=== PATIENT | female | born 1965 | race Caucasian/White ===

== ENCOUNTER 2016-05-23 16:26 | Observation (INO) | payer MEDICAID ==
[~2016-05-23] VITALS: Ht 160 cm; Wt 93.4 kg
[2016-05-23] MEDS ORDERED: ASPIRIN 81 MG CHEW TAB ONE (16:53)
[2016-05-23] MEDS ORDERED: NITROGLYCERIN SL 0.4 MG TAB SL ONE (17:18)
[2016-05-23] MEDS ORDERED: NEB-ALBUTEROL 2.5 MG/3 ML INH PRN (20:40)
[2016-05-23] MEDS ORDERED: PRAVASTATIN 40 MG TAB PO SCH (21:00)
[2016-05-23] MEDS ORDERED: EZETIMIBE 10 MG TAB PO SCH (21:00)
[2016-05-23 22:30] VITALS: BP_SYST 138; BP_SYST 144; RESP 18; TEMP 97.7; Ht 160 cm; Wt 93.4 kg
[2016-05-23] MEDS ORDERED: NITROGLYCERIN 50 MG/250 ML IV PRN (22:40)
[2016-05-23] MEDS ORDERED: TEMAZEPAM 15 MG CAP PO PRN (22:40)
[2016-05-23] MEDS ORDERED: MORPHINE 2 MG/ML SYR IV PRN (22:40)
[2016-05-23] MEDS ORDERED: NITROGLYCERIN SL 0.4 MG TAB SL PRN (22:40)
[2016-05-23] MEDS ORDERED: SALINE FLUSH 10 ML FLUSH PRN (22:40)
[2016-05-23] MEDS ORDERED: TRAMADOL 50 MG TAB PO PRN (22:40)
[2016-05-23] MEDS ORDERED: ONDANSETRON 4 MG VIAL IV PRN (22:40)
[2016-05-23] MEDS ORDERED: ASPIRIN 81 MG CHEW TAB PO ONE (22:40)
[2016-05-23] MEDS ORDERED: DOCUSATE SOD 100 MG CAP PO PRN (22:40)
[2016-05-23] MEDS ORDERED: SODIUM CHLORIDE 0.9% 1,000 ML IV SCH (22:40)
[2016-05-23] MEDS ORDERED: SODIUM CHLORIDE 0.9% FLUSH BAG 500 ML IV PRN (22:40)
[2016-05-23] MEDS ORDERED: LORAZEPAM 0.5 MG TAB PO PRN (22:40)
[2016-05-23] MEDS ORDERED: ACETAMINOPHEN 325 MG TAB PO PRN (22:40)
[2016-05-24] VITALS (7 sets, daily range): BP systolic 111–142; RESP 16–18; TEMP 97.5–98.1
[2016-05-24] MEDS ORDERED: ASPIRIN EC 81 MG TAB PO SCH (08:00)
[2016-05-24] MEDS ORDERED: SALINE FLUSH 10 ML FLUSH SCH ×2 (08:00→20:00)
[2016-05-24] MEDS ORDERED: NITROGLYCERIN 0.2 MG/HR PATCH TRANSDERM SCH (09:40)
[2016-05-24] MEDS ORDERED: METOPROLOL XL 25 MG TAB PO SCH (09:40)
[2016-05-24] MEDS ORDERED: BENZTROPINE MES 1 MG TAB PO SCH (09:40)
[2016-05-24] MEDS ORDERED: AMITRIPTYLINE 50 MG TAB PO SCH (09:48)
[2016-05-24] MEDS ORDERED: CLOPIDOGREL 75 MG TAB PO SCH (09:49)
[2016-05-24] MEDS ORDERED: SERTRALINE 50 MG TAB PO SCH (09:49)
[2016-05-24] MEDS ORDERED: ARIPiprazole 15 MG TAB PO SCH (09:49)
[2016-05-24] MEDS ORDERED: PANTOPRAZOLE 40 MG TAB PO SCH (09:49)
[2016-05-24] MEDS: NEB-ALBUTEROL 2.5 MG/3 ML INH SCH ×2 (09:50→14:05)
[2016-05-24] MEDS ORDERED: TEMAZEPAM 7.5 MG CAP PO PRN (10:50)
[2016-05-24] MEDS ORDERED: DIPHENHYDRAMINE 50 MG CAP PO ONE (10:50)
[2016-05-24] MEDS ORDERED: LORAZEPAM 0.5 MG TAB PO PRN (10:50)
[2016-05-24] MEDS ORDERED: DIAZEPAM 5 MG TAB PO ONE (10:50)
[2016-05-24] MEDS ORDERED: ACETAMINOPHEN 325 MG TAB PO PRN (10:50)
[2016-05-24] MEDS ORDERED: TEMAZEPAM 15 MG CAP PO PRN (10:50)
[2016-05-24] MEDS ORDERED: DEXTROSE 5% SALINE 0.45% 1,000 ML IV ONE (10:50)
[2016-05-24] MEDS ORDERED: DIPHENHYDRAMINE 25 MG CAP ONE (11:02)
[2016-05-24] MEDS ORDERED: LIDOCAINE 2% 20 ML SUBQ ONE (12:35)
[2016-05-24] MEDS ORDERED: MORPHINE 2 MG/ML SYR IV ONE (12:35)
[2016-05-24] MEDS ORDERED: DEXTROSE 5% SALINE 0.45% 1,000 ML IV SCH (12:35)
[2016-05-24] MEDS ORDERED: MIDAZOLAM 2 MG/2 ML INJ IV ONE (12:35)
[2016-05-24] MEDS ORDERED: ONDANSETRON 4 MG VIAL IV PRN (12:35)
[2016-05-24] MEDS ORDERED: MIDAZOLAM 2 MG/2 ML INJ IV PRN (12:35)
[2016-05-24] MEDS ORDERED: SALINE FLUSH 10 ML FLUSH PRN (12:35)
[2016-05-24] MEDS ORDERED: ATROPINE 1 MG/10 ML SYRINGE IV PRN (12:35)
[2016-05-24] MEDS ORDERED: MEPERIDINE 50 MG/ML ONE (19:18)
[2016-05-24] MEDS ORDERED: LIDOCAINE 2% 20 ML ONE (19:18)
[2016-05-24] MEDS ORDERED: PROMETHAZINE 25 MG/ML VIAL ONE (19:18)
[2016-05-24] MEDS ORDERED: MIDAZOLAM 2 MG/2 ML INJ ONE (19:18)
[2016-05-25] MEDS ORDERED: SODIUM CHLORIDE 0.9% FLUSH BAG 500 ML IV SCH (06:00)
== END 2016-05-24 15:46 | disposition home or self-care (01) ==
LOC: ENRESERVDT → ENRESERVTM → ENRESERV → ER 16:26 → ENPENDDIS 19:51 → EMR 19:51 → PCU 22:08
PROVIDERS: ADMIT Internal Medicine Cardiovascular Disease; ATTEND Internal Medicine Cardiovascular Disease
DX: R07.9 Chest pain, unspecified (principal); I25.10 Atherosclerotic heart disease of native coronary artery without angina pectoris; F17.210 Nicotine dependence, cigarettes, uncomplicated; Z95.5 Presence of coronary angioplasty implant and graft; J44.9 Chronic obstructive pulmonary disease, unspecified; I25.2 Old myocardial infarction; Z79.82 Long term (current) use of aspirin; I73.9 Peripheral vascular disease, unspecified; R73.03 Prediabetes; Z71.6 Tobacco abuse counseling; K21.9 Gastro-esophageal reflux disease without esophagitis; F32.9 Major depressive disorder, single episode, unspecified; I10 Essential (primary) hypertension
CPT/HCPCS: 93458; 99285; C1769; 36415; 71010; 80053; 80061; 82550; 82553; 83735; 84484; 85025; 85610; 85730; 93005; 94640; 94799